=== PATIENT | female | born 1950 | race Caucasian/White ===

== ENCOUNTER → 2023-04-19 10:53 | Outpatient (REF) | payer MEDICARE, OTHER, SELFPAY | LOC: RAD 10:53 | PROVIDERS: ATTENDING PHYSICIAN Obstetrics & Gynecology Gynecology; FAMILY PHYSICIAN Internal Medicine | DX: N95.0 Postmenopausal bleeding (principal) | CPT/HCPCS: 76830; 76856 ==

== ENCOUNTER → 2023-10-28 06:25 | Day surgery (SDC) | payer MEDICARE, OTHER, SELFPAY | LOC: GI 06:25 | PROVIDERS: ATTENDING PHYSICIAN Internal Medicine Gastroenterology; FAMILY PHYSICIAN Internal Medicine | DX: K31.89 Other diseases of stomach and duodenum (principal); K25.9 Gastric ulcer, unspecified as acute or chronic, without hemorrhage or perforation; R12 Heartburn | CPT/HCPCS: 43239; 88305; 88342 ==

== ENCOUNTER → 2024-02-10 08:22 | Outpatient (REF) | payer MEDICARE, OTHER, SELFPAY | LOC: WDC 08:22 | PROVIDERS: ATTENDING PHYSICIAN Obstetrics & Gynecology Gynecology; FAMILY PHYSICIAN Internal Medicine | DX: Z12.31 Encounter for screening mammogram for malignant neoplasm of breast (principal) | CPT/HCPCS: 77063; 77067 ==

== ENCOUNTER → 2025-02-11 08:11 | Outpatient (REF) | payer MEDICARE, OTHER, SELFPAY | LOC: WDC 08:11 | PROVIDERS: ATTENDING PHYSICIAN Obstetrics & Gynecology Gynecology; FAMILY PHYSICIAN Internal Medicine | DX: Z12.31 Encounter for screening mammogram for malignant neoplasm of breast (principal) | CPT/HCPCS: 77063; 77067 ==